=== PATIENT | male | born 1945 | race Caucasian/White ===

== ENCOUNTER → 2019-01-02 | Outpatient (CLI) | payer OTHER | LOC: HYPER 07:15 | DX: T81.89XA Other complications of procedures, not elsewhere classified, initial encounter (principal); L59.8 Other specified disorders of the skin and subcutaneous tissue related to radiation; K63.2 Fistula of intestine; K56.7 Ileus, unspecified; E78.5 Hyperlipidemia, unspecified; E03.9 Hypothyroidism, unspecified; I47.1 Supraventricular tachycardia; M06.9 Rheumatoid arthritis, unspecified; Z85.038 Personal history of other malignant neoplasm of large intestine; Z87.891 Personal history of nicotine dependence; Y84.2 Radiological procedure and radiotherapy as the cause of abnormal reaction of the patient, or of later complication, without mention of misadventure at the time of the procedure; Y92.89 Other specified places as the place of occurrence of the external cause; Y83.8 Other surgical procedures as the cause of abnormal reaction of the patient, or of later complication, without mention of misadventure at the time of the procedure ==

== ENCOUNTER → 2019-01-05 | Outpatient (CLI) | payer OTHER | LOC: RAD 14:15 → HYPER 01-09 10:30 | DX: Z01.818 Encounter for other preprocedural examination (principal); I70.0 Atherosclerosis of aorta; M85.88 Other specified disorders of bone density and structure, other site ==

== ENCOUNTER → 2019-01-09 | Outpatient (CLI) | payer OTHER ==
[~2019-01-09] MED LIST: ATORVASTATIN CA40 MG PO; CYMBALTA20 MG PO; FOLIC ACID1 MG PO; NEURONTIN 400400 M1 PO; SYNTHROID50 MCG PO
== END ==
LOC: HYPER 06:40
DX: T81.83XA Persistent postprocedural fistula, initial encounter (principal); L59.8 Other specified disorders of the skin and subcutaneous tissue related to radiation; E03.9 Hypothyroidism, unspecified; E78.5 Hyperlipidemia, unspecified; I47.1 Supraventricular tachycardia; K63.2 Fistula of intestine; K56.7 Ileus, unspecified; M87.38 Other secondary osteonecrosis, other site; M06.9 Rheumatoid arthritis, unspecified; Z87.891 Personal history of nicotine dependence; Z85.038 Personal history of other malignant neoplasm of large intestine; Y84.2 Radiological procedure and radiotherapy as the cause of abnormal reaction of the patient, or of later complication, without mention of misadventure at the time of the procedure; Y92.89 Other specified places as the place of occurrence of the external cause; Y83.8 Other surgical procedures as the cause of abnormal reaction of the patient, or of later complication, without mention of misadventure at the time of the procedure

== ENCOUNTER → 2019-01-10 | Outpatient (CLI) | payer OTHER ==
[~2019-01-10] MED LIST changes: +CLOTRIMAZOLE 1%15 G1 TOP; +COLACE100 MG PO; +DURAGESIC1 EACH TRANSDERM; +FLOMAX0.4 MG PO; +HYDROCODON-ACE1 EAC7 PO; +LIDOPATCH1 EACH TRANSDERM; +MEDROLDOSEPACK PO; +NORCO 10-325 T1 EACH PO; +NORCO 5-325 TA1 EACH PO; +NORFLEX100 MG PO; +OMEPRAZOLE 20 M20 M1 PO; +PREDNISONE 20 M20 MG PO; +SUDAFED 12 HR120 MG PO; +TYLENOL EXTRA500 MG PO
== END ==
LOC: HYPER 06:35
DX: L59.8 Other specified disorders of the skin and subcutaneous tissue related to radiation (principal); E03.9 Hypothyroidism, unspecified; E78.5 Hyperlipidemia, unspecified; I47.1 Supraventricular tachycardia; K63.2 Fistula of intestine; K56.7 Ileus, unspecified; M87.38 Other secondary osteonecrosis, other site; M06.9 Rheumatoid arthritis, unspecified; Z87.891 Personal history of nicotine dependence; Z85.038 Personal history of other malignant neoplasm of large intestine; Y84.2 Radiological procedure and radiotherapy as the cause of abnormal reaction of the patient, or of later complication, without mention of misadventure at the time of the procedure

== ENCOUNTER → 2019-01-11 | Outpatient (CLI) | payer OTHER | LOC: HYPER 01-10 15:14 | DX: L59.8 Other specified disorders of the skin and subcutaneous tissue related to radiation (principal); E03.9 Hypothyroidism, unspecified; E78.5 Hyperlipidemia, unspecified; I47.1 Supraventricular tachycardia; K56.7 Ileus, unspecified; K63.2 Fistula of intestine; M06.9 Rheumatoid arthritis, unspecified; M87.38 Other secondary osteonecrosis, other site; Z87.891 Personal history of nicotine dependence; Z85.038 Personal history of other malignant neoplasm of large intestine; Y84.2 Radiological procedure and radiotherapy as the cause of abnormal reaction of the patient, or of later complication, without mention of misadventure at the time of the procedure ==

== ENCOUNTER 2019-01-12 00:33 | Emergency (ER) | payer OTHER ==
[~2019-01-12] VITALS: Ht 170.2 cm; Wt 75.3 kg
[2019-01-12 01:35] LABS: HEMATOCRIT 37.1 % (42.0-52.0); HEMOGLOBIN 12.4 gm/dL (14.0-18.0); MCH 27.1 pg (26.0-34.0); MCHC 33.3 g/dL (28.0-37.0); MCV 81.2 fL (80.0-100.0); PLATELET COUNT 469 thou/uL (150-400); RBC 4.57 mil/uL (4.50-6.00); RDW 16.1 % (10.5-14.5)
[2019-01-12 01:42] LABS: CREATININE 1.7 mg/dL (0.7-1.3); POTASSIUM 3.7 mmol/L (3.5-5.1)
[2019-01-12] MEDS ORDERED: ATORVASTATIN CA40 MG PO (01:46)
[2019-01-12] MEDS ORDERED: SYNTHROID50 MCG PO (01:46)
[2019-01-12] MEDS ORDERED: NEURONTIN 400400 M1 PO (01:47)
[2019-01-12] MEDS ORDERED: CYMBALTA20 MG PO (01:47)
[2019-01-12] MEDS ORDERED: FOLIC ACID1 MG PO (01:47)
[2019-01-12 02:24] LABS: ABSOLUTE NEUTROPHILS 3.5 thou/uL (1.4-8.2)
[2019-01-12 02:25] LABS: ANISOCYTOSIS 1+; PLATELET ESTIMATE INCREASED; POLYCHROMASIA 1+
[2019-01-12] MEDS ORDERED: NORCO 5-325 TA1 EACH PO (03:23)
[2019-01-12] MEDS ORDERED: PREDNISONE 20 M20 MG PO (03:23)
[2019-01-12] MEDS ORDERED: NORFLEX100 MG PO (03:23)
[2019-01-12 03:47] VITALS: BP 144/80
== END 2019-01-12 03:48 | disposition home or self-care (01) ==
LOC: ER 00:33
PROVIDERS: Emergency Medicine
DX: M54.5 Low back pain (principal)

== ENCOUNTER 2019-01-14 14:40 | Inpatient (IN) | payer OTHER ==
[~2019-01-14] VITALS: Ht 170.2 cm; Wt 79.4 kg
[~2019-01-14 14:40] MED LIST changes: -CLOTRIMAZOLE 1%15 G1 TOP; -COLACE100 MG PO; -DURAGESIC1 EACH TRANSDERM; -FLOMAX0.4 MG PO; -HYDROCODON-ACE1 EAC7 PO; -LIDOPATCH1 EACH TRANSDERM; -MEDROLDOSEPACK PO; -NORCO 10-325 T1 EACH PO; -OMEPRAZOLE 20 M20 M1 PO; -SUDAFED 12 HR120 MG PO; -TYLENOL EXTRA500 MG PO
[2019-01-14] MEDS ORDERED: FLOMAX0.4 MG PO (14:46)
[2019-01-14] MEDS ORDERED: SUDAFED 12 HR120 MG PO (14:46)
[2019-01-14] MEDS ORDERED: TYLENOL EXTRA500 MG PO (14:48)
[2019-01-14] MEDS ORDERED: CLOTRIMAZOLE 1%15 G1 TOP (14:49)
[2019-01-14 16:40] LABS: ABSOLUTE NEUTROPHILS 4.9 thou/uL (1.4-8.2); BASOPHILS 0.3 % (0.0-2.0); HEMATOCRIT 40.8 % (42.0-52.0); HEMOGLOBIN 13.5 gm/dL (14.0-18.0); LYMPHOCYTES 14.4 % (24.0-44.0); MCH 27.2 pg (26.0-34.0); MCV 82.4 fL (80.0-100.0); MONOCYTES 4.4 % (1.0-8.0); PLATELET COUNT 478 thou/uL (150-400); POLYS 80.9 % (36.0-66.0); RBC 4.95 mil/uL (4.50-6.00); RDW 16.2 % (10.5-14.5)
[2019-01-14 16:55] LABS: APTT 31.6 Seconds (24.5-32.8); PROTIME 10.5 Seconds (9.3-11.4)
[2019-01-14 17:00] LABS: ALBUMIN 3.4 g/dL (3.4-5.0); ANION GAP 7 mmol/L (7-16); BUN 20 mg/dL (7-18); CALCIUM 10.3 mg/dL (8.5-10.1); CHLORIDE 102 mmol/L (98-107); CO2 31 mmol/L (21-32); CREATININE 1.3 mg/dL (0.7-1.3); GLUCOSE 119 mg/dL (74-106); MAGNESIUM 2.1 mg/dL (1.8-2.4); SGOT 19 U/L (15-37); SGPT 23 U/L (30-65); SODIUM 140 mmol/L (136-145); TOTAL BILIRUBIN 0.4 mg/dL (<0.1-1.0); TOTAL PROTEIN 7.4 g/dL (6.4-8.2); TROPONIN-I <0.06 ng/mL (<0.06)
[2019-01-14 18:08] VITALS: BP 100/77
[2019-01-14 20:17] VITALS: BP 115/77
[2019-01-14 23:16] LABS: URINE BILIRUBIN NEGATIVE (Negative); URINE BLOOD 2+ (Negative); URINE CLARITY CLEAR; URINE COLOR YELLOW; URINE GLUCOSE-RANDOM* NEGATIVE (Negative); URINE KETONES NEGATIVE (Negative); URINE LEUKOCYTES-REFLEX NEGATIVE (Negative); URINE NITRITE-REFLEX NEGATIVE (Negative); URINE PROTEIN (DIPSTICK) NEGATIVE (Negative); URINE SPECIFIC GRAVITY <= 1.005 (1.005-1.035); URINE UROBILINOGEN 0.2 E.U./dl (0.2-1.0)
[2019-01-15 00:22] LABS: BACTERIA-REFLEX None Seen /HPF (None Seen); CASTS None Seen /LPF (None Seen); CRYSTALS None Seen /LPF (None Seen); MUCUS None Seen strn/LPF (None Seen); SQUAMOUS None Seen /LPF (0-3); URINE RBC 3-10 Few /HPF (0-2); URINE WBC-REFLEX None Seen /HPF (0-5)
[2019-01-15 03:57] VITALS: BP 111/74
[2019-01-15 08:13] VITALS: BP 109/81
[2019-01-15 16:27] VITALS: BP 95/70
[2019-01-15 20:12] VITALS: BP 97/70
[2019-01-16 06:45] LABS: HEMOGLOBIN 13.7 gm/dL (14.0-18.0); MCH 27.4 pg (26.0-34.0); MCHC 33.3 g/dL (28.0-37.0); MCV 82.1 fL (80.0-100.0); RBC 4.99 mil/uL (4.50-6.00); RDW 16.8 % (10.5-14.5); WBC 7.9 thou/uL (4.0-11.0)
[2019-01-16 06:59] LABS: CALCIUM 10.2 mg/dL (8.5-10.1); CREATININE 1.5 mg/dL (0.7-1.3); MAGNESIUM 2.3 mg/dL (1.8-2.4); POTASSIUM 3.8 mmol/L (3.5-5.1)
[2019-01-16 09:10] VITALS: BP 90/64
[2019-01-16 10:05] LABS: TSH 4.156 uIU/mL (0.358-3.740)
[2019-01-16 20:09] VITALS: BP 113/77
[2019-01-17 06:47] LABS: HEMATOCRIT 40.1 % (42.0-52.0); HEMOGLOBIN 13.2 gm/dL (14.0-18.0); MCH 26.7 pg (26.0-34.0); MCHC 32.8 g/dL (28.0-37.0); MCV 81.4 fL (80.0-100.0); RBC 4.93 mil/uL (4.50-6.00); RDW 16.4 % (10.5-14.5); WBC 7.2 thou/uL (4.0-11.0)
[2019-01-17 07:07] LABS: CALCIUM 9.8 mg/dL (8.5-10.1); CREATININE 1.2 mg/dL (0.7-1.3)
[2019-01-17 08:00] VITALS: BP 14/90
--- NOTE | 2019-01-17 09:56 | HC ---
[facility] [place] [address] CONSULTATION Name: LEIF SAAB Room #: 221-P ADM IN M.R.#: [id number] Admission: 01/14/19 ������������������ Attend Phys: Kendrick Gupta MD Discharge: ������������������ Date of : 43 Report #: [id number] THIS REPORT FOR: //name// CC: Kendrick Leiva DATE OF SERVICE: 01/16/2019 ATTENDING PHYSICIAN: Dr. Kendrick Gupta. REASON FOR CONSULTATION: Severe back pain, question recurrent diskitis versus post-diskitis pain. HISTORY OF PRESENT ILLNESS: A 73-year-old white man was treated for L1-L2 diskitis in [place] with 8 weeks of parenteral antibiotics. The patient was previously seen by [facility]2019 and at that point in time, I was advised he did have catheter sepsis with coagulase-negative Staphylococcus. His back pain was of sudden onset and consequently the connection was made between the bacteremia with coagulase-negative Staphylococcus and diskitis and treated with parenteral antibiotics, intravenous vancomycin for 8 weeks with improvement. His sedimentation rate during that particular hospitalization was not significantly elevated. The patient's son-in-law came [facility]. I requested blood cultures as well as CT of the spine be made available for my review, I had none of those at that point in time. The patient was seen at great length and I visited with the patient, his daughter, his son-in-law, Dr. Gupta and Dr. Scar Leiva as well as I reviewed the MRI of the spine that obviously reveal abnormalities of L1 and L2 vertebral bodies with question abscess L1 and fluid in the disk space. The only thing not going along with an infectious process was the mild to no elevation of ESR and CRP that are thoroughly and completely documented on current laboratory test results and the addendum I entered on my note yesterday. After giving a great deal of thinking about this patient's problem, I elected to proceed with intervention radiology's percutaneous drainage of the L1 vertebral body lesion and L1-L2 disk space in view of abnormalities. Discussed this recommendation with the patient and with Dr. Scar Leiva. Dr. Scar Leiva tells me he did receive the blood culture result from the referring hospital dated 10/29/2018 and resulted on 11/01/2018. It did reveal staphylococcus epidermidis sensitive to vancomycin and only intermediately sensitive to tetracycline and susceptible to rifampin and also erythromycin. We are not given any other reports regarding that. PAST MEDICAL HISTORY: History of intra-abdominal surgical intervention for colon carcinoma, segmental colon resection in 1987 with positive lymph nodes. Several episode of partial small-bowel obstruction treated with no surgical intervention. During this last hospitalization at the [facility], the [address] [address] CONSULTATION Name: RAKANLokiLEIF Room #: 221-P ADM IN M.R.#: [id number] Admission: 01/14/19 ������������������ Attend Phys: Kendrick Gupta MD Discharge: ������������������ Date of : 43 Report #: [id number] patient had exploratory laparotomy, lysis of adhesions and development of enterocutaneous fistula requiring TPN that resulted in coagulase-negative positive blood culture. As far as I received today, there is only a single positive blood culture. The important fact is that the patient did get better with parenteral vancomycin. DRUG ALLERGIES: None listed. MEDICATIONS: The patient has received treatment with vancomycin 1 g IV every 12 hours and I discontinued this antibiotic yesterday. He is also on treatment with folic acid 1 mg daily, atorvastatin 40 mg daily, tamsulosin 0.4 mg daily, levothyroxine 50 mcg daily, gabapentin 400 mg t.i.d., Senna docusate 2 tablets b.i.d., duloxetine 20 mg b.i.d., enoxaparin 40 mg at bedtime subcutaneously, Benadryl 25 mg every 8 hours p.r.n., ondansetron p.r.n., lorazepam p.r.n., I discontinued baclofen topical b.i.d. in view of chronic kidney disease. REVIEW OF SYSTEMS: Severe back pain localized lumbar area with no radicular radiation. After a lengthy discussion with the patient and Dr. Scar Leiva, my recommendation is to proceed with aspiration of the L1 vertebral body and L1-L2 disk space today to make 100% certain we are not dealing with an infectious process and all we are dealing with is post-diskitis pain. PHYSICAL EXAMINATION: GENERAL: Well-developed man, not toxic looking, no distress, no pain while at bed rest. VITAL SIGNS: Temperature 98.6, pulse 94, respirations 20, BP 160/90 on 01/12/2019. On 01/14/2019 was 98.1 today, which is 01/16/2019 temperature 97.4. HEENMT: Normal. NECK: Supple, no thyromegaly. LUNGS: Clear to auscultation. HEART: S1, S2. No gallop or murmur. ABDOMEN: Surgical scar abdomen with no longer active area of healing by secondary intention where the enterocutaneous fistula was located. GENITAL AND RECTAL: Deferred. EXTREMITIES: No clubbing, cyanosis. NEUROLOGIC: Grossly within normal limits. LABORATORY DATA: On 01/14/2019: Sodium 140, potassium 4, BUN 20, creatinine 1.3. On 01/16/2019: Sodium 140, potassium 3.8, BUN 29, creatinine 1.5, hypercalcemia of 10.3 and 10.2 on above-mentioned dates. Alkaline phosphatase elevated 177. CRP on 01/14/2019, 6.3 and today is 13.6. WBCs 7900, hemoglobin 13.7 g/dL and platelets 439,000. ESR on 01/14/2019 was 22 and today is 15. Mild elevation of TSH. The urinalysis revealed microscopic hematuria. [facility] [address] [place] [address] CONSULTATION Name: LEIF SAAB Room #: 221-P ADM IN .R.#: [id number] Admission: 01/14/19 ������������������ Attend Phys: Kendrick Gupta MD Discharge: ������������������ Date of : 43 Report #: [id number] MICROBIOLOGY DATA: Blood cultures x 2 were obtained, they remain negative so far. RADIOLOGY EVALUATION: MRI of the lumbar spine revealed edema of the vertebral body L1 and L2 and fluid in the disk space. On the body of L1, there may be area of prior infection that may represent an abscess. Sedimentation rate obtained on an outpatient basis during my evaluation [facility] revealed ESR on 01/09/2019 of 4 mm per hour and C-reactive protein on 01/09/2019 of 10.9 mg/L. ASSESSMENT: 1. Severe back pain, question secondary to infectious discitis, post-infectious discitis. 2. Abnormal MRI of the lumbar spine with above described symptoms. 3. Chronic kidney disease. 4. History of colon cancer. 5. Microscopic hematuria. 6. Persistent worsening back pain. SUGGESTIONS: Recommend proceed with aspiration of the vertebral body and L1-L2 disk space by interventional radiologist, observe off vancomycin, discontinue nonsteroidal anti-inflammatory medications in view of renal dysfunction and hopefully will reach a diagnosis of either ongoing acute -- chronic diskitis versus post-diskitis pain. Dr. Gupta, thank you for requesting my suggestions. ��������������������������������������������� <ELECTRONICALLY SIGNED> ���������������������������������������� By: Og Davies MD ��������������������������������������������� 01/17/19 0956 [id number] Og Davies MD /nt
[2019-01-17 19:16] VITALS: BP 143/83
[2019-01-18 08:00] VITALS: BP 142/82
[2019-01-18 18:34] VITALS: BP 121/75
[2019-01-19 08:48] VITALS: BP 133/84
[2019-01-19 13:29] VITALS: BP 133/84
== END 2019-01-19 14:10 | disposition home or self-care (01) | DRG 853 ==
LOC: 4W 14:40 → SICU 14:40 → 4W 16:36 → SICU 01-15 21:41 → ENTRNSPT 01-19 13:51 → EDTRNSPTSTS 01-19 13:53 → SICU 01-19 14:10
PROVIDERS: Hospitalist; Internal Medicine Geriatric Medicine; ADMIT Internal Medicine
PROC: 0QB03ZX Excision of Lumbar Vertebra, Percutaneous Approach, Diagnostic (ICD-10-PCS; principal; 2019-01-17)
PROC: 0S9 Lower Joints, Drainage (ICD-10-PCS; principal; 2019-01-17)
PROC: B01B1ZZ Fluoroscopy of Spinal Cord using Low Osmolar Contrast (ICD-10-PCS; principal; 2019-01-17)
DX: A41.9 Sepsis, unspecified organism (principal); E43 Unspecified severe protein-calorie malnutrition; K63.2 Fistula of intestine; M46.46 Discitis, unspecified, lumbar region; N18.9 Chronic kidney disease, unspecified; R31.29 Other microscopic hematuria; M06.9 Rheumatoid arthritis, unspecified; K43.9 Ventral hernia without obstruction or gangrene; E78.5 Hyperlipidemia, unspecified; G89.4 Chronic pain syndrome; N40.0 Benign prostatic hyperplasia without lower urinary tract symptoms; E03.9 Hypothyroidism, unspecified; F41.9 Anxiety disorder, unspecified; R09.81 Nasal congestion; E53.8 Deficiency of other specified B group vitamins; Z85.038 Personal history of other malignant neoplasm of large intestine; Z90.49 Acquired absence of other specified parts of digestive tract; Z79.899 Other long term (current) drug therapy
CPT/HCPCS: 10045; 15002

== ENCOUNTER 2019-01-22 22:13 | Inpatient (IN) | payer OTHER ==
[~2019-01-22] VITALS: Ht 170.2 cm; Wt 72.1 kg
[~2019-01-22 22:13] MED LIST changes: -COLACE100 MG PO; -DURAGESIC1 EACH TRANSDERM; -HYDROCODON-ACE1 EAC7 PO; -LIDOPATCH1 EACH TRANSDERM; -MEDROLDOSEPACK PO; -NORCO 10-325 T1 EACH PO; -OMEPRAZOLE 20 M20 M1 PO
[2019-01-22 22:16] VITALS: BP 144/88
[2019-01-22] MEDS ORDERED: COLACE100 MG PO (22:30)
--- NOTE | 2019-01-22 22:31 | NUR ---
USUALLY DOES HYPERBARIC DAILY, MISSED 1 WEEK WHILE IN HOSPITAL
[2019-01-22 22:49] LABS: HEMATOCRIT 40.4 % (42.0-52.0); HEMOGLOBIN 13.4 gm/dL (14.0-18.0); MCHC 33.2 g/dL (28.0-37.0); MCV 81.1 fL (80.0-100.0); PLATELET COUNT 435 thou/uL (150-400); RBC 4.98 mil/uL (4.50-6.00); RDW 16.8 % (10.5-14.5); WBC 9.3 thou/uL (4.0-11.0)
[2019-01-22 22:55] LABS: CREATININE 1.1 mg/dL (0.7-1.3); POTASSIUM 3.7 mmol/L (3.5-5.1)
[2019-01-22 23:49] LABS: ANISOCYTOSIS 1+; PLATELET ESTIMATE INCREASED; POLYCHROMASIA 1+
[2019-01-23] VITALS (9 sets, daily range): BP systolic 121–178; BP diastolic 79–100
[2019-01-23] MEDS ORDERED: OMEPRAZOLE 20 M20 M1 PO (02:26)
[2019-01-23] MEDS ORDERED: NORFLEX100 MG PO ×2 (02:27→16:21)
--- NOTE | 2019-01-23 03:55 | NUR ---
PT ADMITTED INTO ROOM 456 AT AROUND 0300HRS.ADMISSION ASSESSMENT COMPLETED. PT IS ALERT AND ORIENTED BUT VERY ANXIOUS.PT KEPT ASKING FOR PAIN MEDS DURING THE ADMISSION. HE MENTIONS MORPHINE. HIS PAIN IS RATED AT ABOVE 10.PT WAS ABLE TO STAND BY THE SIDE OF THE BED AND USE THE URINAL. HE HAS SOME URINARY HESITANCY. AFEBRILE. DENIES GI DISCOMFORT. REPORTS BM TWO DAYS AGO. PT SETTLED DOWN AT THIS TIME. CALL LIGHT WITHIN REACH.FALL PREC IN PLACE.
[2019-01-23 06:08] LABS: CALCIUM 10.1 mg/dL (8.5-10.1); CREATININE 1.2 mg/dL (0.7-1.3); POTASSIUM 3.6 mmol/L (3.5-5.1)
--- NOTE | 2019-01-23 09:47 | NUR ---
CALLED DR HOWELL FOR PO ITCHING MED AND CREAM AND ANXIETY MED PRN
--- NOTE | 2019-01-23 14:07 | NUR ---
PT ADMITTED RELATED TO INTRACTABLE BACK PAIN. CM MET WITH PT AT BEDSIDE THIS DAY. PT IS A&O X4. CM ROLE INTRODUCED. PT INDICATED THAT PT IS STAYING IN A HOUSE WITH HIS DTR AND SON IN [place] WITH 1 STEP TO ENTER AND 16 STEPS INSIDE. PT INDICATED SHE PLANS TO RETURN THERE UPON DISHCAGE. PT DISCHARGE HOME FROM HOSPITAL WITH NO NEEDS TUESDAY AND WAS SUPPOSED TO FOLLOW UP AT [facility] OR [facility] FOR OP PAIN MANAGEMENT. CM TO FOLLOW INDICATED WITH DC PLANNING.
--- NOTE | 2019-01-23 15:48 | NUR ---
CALLED [facility] GAVE REPORT ON PATIENT HE WILL BE TRANSFERRING TO ROOM 225
[2019-01-23] MEDS ORDERED: NORCO 10-325 T1 EACH PO (16:21)
[2019-01-23] MEDS ORDERED: MEDROLDOSEPACK PO (16:21)
[2019-01-23] MEDS ORDERED: LIDOPATCH1 EACH TRANSDERM (16:21)
[2019-01-23] MEDS ORDERED: HYDROCODON-ACE1 EAC7 PO (16:21)
[2019-01-23] MEDS ORDERED: DURAGESIC1 EACH TRANSDERM (16:21)
--- NOTE | 2019-01-23 17:15 | NUR ---
CARE TEAM INDICATED THAT PT IS MEDICALLY STABLE TO DISHCARGE HOME THIS DAY. PHYSICIAN IS RECOMMENDING PT, OT, AND NURSING HH SERVICES. CM SPOKE WITH [facility] AND THEY ARE ABLET TO ACCEPT PT FOR SERVICES UPON DC TODAY. PT IS TO HAVE OP APPOINTMENT MADE [facility] PAIN MANAGEMENT. NO OTHER CM INTERVENTION INDICATED AT THIS TIME. CASE CLOSED.
--- NOTE | 2019-01-23 18:29 | NUR ---
ARRIVED TO ROOM 225 IN [facility] AT 1630 VIA WC. STOOD UP BY HIMSELF AND TRANSFERRED TO THE BED. RATING PAIN #8 TO LOWER BACK. TOOK A PAIN PILL PRIOR TO COMING DOWN. MAIN COMPLAINT ITCHING. GAVE BENADRYL AND NOW SLEEPING. REFUSED SUPPER. FALL PRECAUTIONS IN PLACE. PLAN IS TO DISCHARGE HOME WHEN DTR ARRIVES THIS EVENING. PATIENT TO FOLLOWUP WITH PAIN CLINIC AN OUTPATIENT TOMORROW FOR AN EPIDURAL INJECTION. WILL DISCHARGE HOME THIS EVENING.
--- NOTE | 2019-01-24 07:22 | NUR ---
PATIENT DISCHARGED PRIOR TO OT EVALUATION BEING INITIATED.
== END 2019-01-23 19:22 | disposition home health service (06) | DRG 552 ==
LOC: ER 22:13 → 4W 01-23 01:03 → EROBS 01-23 01:03 → 4W 01-23 02:48 → SICU 01-23 16:33 → ENTRNSPT 01-23 19:16 → SICU 01-23 19:22
PROVIDERS: Nurse Practitioner Family; Student in an Organized Health Care Education/Training Program; ADMIT Internal Medicine
DX: M54.5 Low back pain (principal); M06.9 Rheumatoid arthritis, unspecified; E78.5 Hyperlipidemia, unspecified; G89.4 Chronic pain syndrome; F41.9 Anxiety disorder, unspecified; E03.9 Hypothyroidism, unspecified; N40.0 Benign prostatic hyperplasia without lower urinary tract symptoms; Z85.038 Personal history of other malignant neoplasm of large intestine
CPT/HCPCS: 15002

== ENCOUNTER → 2019-01-22 | Outpatient (CLI) | payer OTHER ==
[~2019-01-22] MED LIST changes: +CLOTRIMAZOLE 1%15 G1 TOP; +COLACE100 MG PO; +DURAGESIC1 EACH TRANSDERM; +FLOMAX0.4 MG PO; +HYDROCODON-ACE1 EAC7 PO; +LIDOPATCH1 EACH TRANSDERM; +MEDROLDOSEPACK PO; +NORCO 10-325 T1 EACH PO; +OMEPRAZOLE 20 M20 M1 PO; +SUDAFED 12 HR120 MG PO; +TYLENOL EXTRA500 MG PO
== END ==
LOC: HYPER
DX: L59.8 Other specified disorders of the skin and subcutaneous tissue related to radiation (principal); K56.7 Ileus, unspecified; K63.2 Fistula of intestine; E03.9 Hypothyroidism, unspecified; E78.5 Hyperlipidemia, unspecified; I47.1 Supraventricular tachycardia; M06.9 Rheumatoid arthritis, unspecified; M19.90 Unspecified osteoarthritis, unspecified site; M87.38 Other secondary osteonecrosis, other site; Z87.891 Personal history of nicotine dependence; Z85.038 Personal history of other malignant neoplasm of large intestine; Y84.2 Radiological procedure and radiotherapy as the cause of abnormal reaction of the patient, or of later complication, without mention of misadventure at the time of the procedure

== ENCOUNTER → 2019-01-25 | Outpatient (CLI) | payer OTHER ==
[~2019-01-25] MED LIST changes: +BENADRYL25 MG PO; +COLACE100 MG PO; +DURAGESIC1 EAC4 TRANSDERM; +DURAGESIC1 EACH TRANSDERM; +HYDROCODON-ACE1 EAC7 PO; +LIDOPATCH1 EACH TRANSDERM; +MEDROLDOSEPACK PO; +MIRALAX17 G1 PO; +NORCO 10-325 T1 EACH PO; +OMEPRAZOLE 20 M20 M1 PO; +PSEUDOEPHEDRIN120 M1 PO
== END ==
LOC: HYPER 01-23 07:42
DX: L59.8 Other specified disorders of the skin and subcutaneous tissue related to radiation (principal); K63.2 Fistula of intestine; K56.7 Ileus, unspecified; M06.9 Rheumatoid arthritis, unspecified; E03.9 Hypothyroidism, unspecified; I47.1 Supraventricular tachycardia; E78.5 Hyperlipidemia, unspecified; J69.0 Pneumonitis due to inhalation of food and vomit; M19.90 Unspecified osteoarthritis, unspecified site; Z87.891 Personal history of nicotine dependence; Z85.038 Personal history of other malignant neoplasm of large intestine; Y84.2 Radiological procedure and radiotherapy as the cause of abnormal reaction of the patient, or of later complication, without mention of misadventure at the time of the procedure

== ENCOUNTER → 2019-01-26 | Outpatient (CLI) | payer OTHER | LOC: HYPER | DX: L59.8 Other specified disorders of the skin and subcutaneous tissue related to radiation (principal); K63.2 Fistula of intestine; K56.7 Ileus, unspecified; E03.9 Hypothyroidism, unspecified; I47.1 Supraventricular tachycardia; E78.5 Hyperlipidemia, unspecified; M19.90 Unspecified osteoarthritis, unspecified site; Z87.891 Personal history of nicotine dependence; Z85.038 Personal history of other malignant neoplasm of large intestine; Y84.2 Radiological procedure and radiotherapy as the cause of abnormal reaction of the patient, or of later complication, without mention of misadventure at the time of the procedure ==

== ENCOUNTER → 2019-01-29 | Outpatient (CLI) | payer OTHER ==
[~2019-01-29] MED LIST changes: +SUPRAX400 M1 PO; +TETRACYCLINE H250 MG PO
== END ==
LOC: HYPER
DX: L59.8 Other specified disorders of the skin and subcutaneous tissue related to radiation (principal); K63.2 Fistula of intestine; K56.7 Ileus, unspecified; E03.9 Hypothyroidism, unspecified; E78.5 Hyperlipidemia, unspecified; I47.1 Supraventricular tachycardia; M06.9 Rheumatoid arthritis, unspecified; M87.38 Other secondary osteonecrosis, other site; Z85.038 Personal history of other malignant neoplasm of large intestine; Z87.891 Personal history of nicotine dependence; Y84.2 Radiological procedure and radiotherapy as the cause of abnormal reaction of the patient, or of later complication, without mention of misadventure at the time of the procedure

== ENCOUNTER → 2019-01-31 | Outpatient (CLI) | payer OTHER ==
[~2019-01-31] VITALS: Ht 167.6 cm; Wt 72.5 kg
[~2019-01-31] MED LIST changes: -SUPRAX400 M1 PO; -TETRACYCLINE H250 MG PO
[2019-01-31 11:27] VITALS: BP 133/85
--- NOTE | 2019-01-31 11:51 | NUR ---
Pain Clinic Assessment: 1. History of Osteoarthritis: B/L OSTEOARTHRITIS History of Rheumatoid Arthritis: SYSTEMIC 2. Height: 5 ft. 6 in. 167.6 cm. Weight: 159.8 lb. oz. 72.485 kg. Patient's BMI: 25.8 3. Vital Signs: BP: 133/85 Pulse: 99 Resp: 16 Temp: 02 Sat: 100 ECG Mon: 4. Pain Intensity: 7 5. Fall Risk: Dizziness: N Needs help standing or walking: N Fallen in the last 3 months: N Fall risk comments: 6. Patient on Blood Thinner: None 7. History of Hypertension: N 8. Opioid Therapy greater than 6 weeks: Opiate Contract Signed: 9. Risk Assessment Tool Provided: 10. Functional Assessment Tool: 11. Recreational Drug Use: Never Drug Type: Tobacco Use: Never Smoker Tobacco Type: Amount or Packs/day: How Many Years: Alcohol Use: No Frequency: Quant:
--- NOTE | 2019-02-07 09:13 | HPC ---
[facility] [place] [address] PAIN MANAGEMENT CONSULTATION Name: LEIF SAAB Room #: REG MELONIE Alonso.#: [id number] Admission: 01/31/19 ������������������ Attend Phys: Cornelio Robbins DO Discharge: ������������������ Date of : 43 Report #: [id number] THIS REPORT FOR: //name// CC: FAM unknown Cornelio Robbins Referring Physician DATE OF SERVICE: 01/31/2019 CHIEF COMPLAINT: Back pain. HISTORY OF PRESENT ILLNESS: As you know, the patient is a very pleasant 73-year-old male who has a longstanding history of osteomyelitis and diskitis involving the lumbar spine. Apparently, his symptoms began from an infected PICC line. He was recently admitted to [facility] for continued back pain. He was seen by multiple physicians to review the findings of his imaging and biopsy. Apparently biopsy came back negative though his imaging shows significant changes within the lumbar spine indicated per the radiologist as suggesting ongoing infection at the L1-L2 level. He apparently has negative blood cultures and was subsequently discharged from the hospital on 01/23/2019, though his pain was uncontrolled. He was referred to our clinic to trial epidural injections though the admitting physicians were advised that this was not a possibility and would not be offered as it would not provide benefit for the findings of his imaging studies. He was made today's appointment to discuss other options for treatment. PAST MEDICAL HISTORY: 1. Chronic colon problems. 2. Degenerative joint disease. 3. Osteoarthritis. 4. Colon cancer. 5. Osteomyelitis. 6. Diskitis. PAST SURGICAL HISTORY: 1. Colon surgery in 1988 and 1987. 2. Small-bowel obstruction with surgical decompression in 05/2018. SOCIAL HISTORY: The patient denies tobacco, alcohol, IV or illicit drug use. He retired in 2017, not receiving workmen's compensation nor is he trying to obtain disability benefits. He is not in litigation in regards to pain. REVIEW OF SYSTEMS: Positive for fatigue and weakness, wearing corrective eyewear, painful bowel movements with constipation, nocturia, kidney stones, thyroid disease, heat and cold intolerance, osteomyelitis and diskitis of the lumbar spine. All other review of systems negative per 12-point review of [facility] [address] [place] [address] PAIN MANAGEMENT CONSULTATION Name: LEIF SAAB Room #: REG [facility]..#: [id number] Admission: 01/31/19 ������������������ Attend Phys: Cornelio Robbins DO Discharge: ������������������ Date of : 43 Report #: [id number] systems other than those listed in the history of present illness. Pain impact score 70/70 indicating complete interference of daily activities secondary to pain. ALLERGIES: No known drug allergies. CURRENT MEDICATIONS: Norflex 100 mg twice a day, Lidoderm patch apply topically up to 12 hours at a time, Medrol Dosepak as necessary, hydrocodone 10/325 1 tab p.o. q. 6 hours p.r.n. for pain, fentanyl 12 mcg q. 72 hours, omeprazole 20 mg per day, docusate sodium 100 mg per day, acetaminophen 500 mg 3 times a day, atorvastatin 40 mg per day, levothyroxine 50 mcg per day, duloxetine 20 mg twice a day, folic acid 1 mg per day and tamsulosin 0.4 mg once a day. IMAGING: MRI lumbar spine obtained on 01/15/2019 shows marked marrow edema involving the L1-L2 vertebral bodies. A small amount of fluid in the disk at L1-L2, findings consistent with recurrent diskitis suggesting ongoing infection. There is a fluid filled central region in the L1 vertebral body possibly an area of necrosis or abscess formation measuring 1.3 cm x 0.7 cm. Minor epidural enhancement adjacent to the vertebral bodies at that level. PQRS: The patient has known osteoarthritic changes of the low lumbar spine, bilateral hips and bilateral knees. He is treated for rheumatoid arthritis. He places pain intensity is 7/10. He is a fall risk, but has not had a fall in the last 3 months. He is not on blood thinners. He is not treated for hypertension. He is not been on opioids greater than 6 weeks. He has a low opioid addiction potential. Pain impact score is 70/70, complete interference of daily activities secondary to pain. PHYSICAL EXAMINATION: VITAL SIGNS: Blood pressure 133/85, pulse 99, respiratory rate 16 and unlabored. The patient is 100% on room air. Height 5 feet 6 inches tall, weight 159.8 pounds, BMI calculated 25.8. GENERAL: Well-developed, well-nourished, well-hydrated 73-year-old male appearing stated age. He is in acute distress, placing current pain score 7/10. HEENT: Normocephalic and atraumatic. Pupils are equal, round and reactive to light. Extraocular muscles are intact. Sclerae are nonicteric without injection. NEUROLOGIC: Cranial nerves 2-12 grossly are intact. Speech is fluent. The patient deemed a good historian. LUNGS: Clear, no wheezing, rhonchi or rales. CARDIOVASCULAR: Regular. No appreciable gallop or rub. ABDOMEN: Soft, nontender, nondistended, normoactive bowel sounds. EXTREMITIES: Show no clubbing, no cyanosis and no edema. MUSCULOSKELETAL: Lower extremity strength is symmetrical 5/5. Pain is elicited with any hip flexion, knee extension whether be it left or right side. Seated [address] [address] PAIN MANAGEMENT CONSULTATION Name: LEIF SAAB Room #: REG MELONIE [facility].#: [id number] Admission: 01/31/19 ������������������ Attend Phys: Cornelio Robbins DO Discharge: ������������������ Date of : 43 Report #: [id number] straight leg raising is negative. Supine straight leg raising is negative. Nancy's test negative. Modified Gaenslen's positive for axial low back pain. Ankle clonus is negative. Babinski is negative. ASSESSMENT: 1. Acute on chronic osteomyelitis of L1 and L2. 2. Diskitis of L1-L2 disk space. 3. Intractable back pain. PLAN: 1. The patient has been referred to our clinic by the admitting team at [facility] where he was seen for his osteomyelitis and diskitis. He was provided today's appointment to be seen in consultation to discuss options for treatment. As indicated in the history of present illness and to the referring physicians, epidural injections are not appropriate to be provided for this issue. It will not help with diskitis or osteomyelitis and is an absolute contraindication to epidural injections. We discussed with the patient other options for treatment, which limits us to essentially TLSO bracing and medication management. We discussed this with the patient today, he understands after seeing his MRI the reason why he has the symptoms he is currently experiencing. 2. We will start the patient on a higher dose of fentanyl. Currently, he is utilizing a 12 mcg patch. We will escalate to a 25 mcg patch for the next 6 days. If this is ineffective then we will move to a 37 mcg patch to try to gain better analgesic benefit. The patient does have a 12 mcg patches available to him to be able to titrate if necessary. 3. The patient was provided a prescription of fentanyl 25 mcg patch 1 patch q. 72 hours. I gave the patient #5 patches as an initial dosing. If this is effective, we will continue on the 25 mcg patch and he can return for the next in the series of medication refills. If this does not improve his symptoms, we will escalate to the 37 mcg patch by utilizing the preexisting 12 mcg patches he has with the new prescription of 25 mcg. He will contact our clinic early next week to advise on the effectiveness of the 25 mcg. 3. We discussed with the patient he will need to follow up with Infectious Disease and possibly even a Neurosurgery consultation if his symptoms do not improve. The patient was advised that he does not have osteomyelitis though the findings on his MRI contradict that comment report. Recommend the patient to follow up with ID and possibly Neurosurgery if necessary. 4. We will see the patient back in followup visit for medication management. There is no radicular component of the patient's symptoms, so epidural injection is not indicated nor would it be appropriate with the findings of the MRI. In fact, the findings of the MRI are an absolute contraindication for an epidural injection and will not be a possibility for treatment. This also precludes spinal cord stimulator therapy, though I do not feel this would be of benefit in this patient's case. 5. We wish to thank the referring physician for the opportunity to see this [address] [address] PAIN MANAGEMENT CONSULTATION Name: KAISERLEIF Room #: REG MELONIE Pardo#: [id number] Admission: 01/31/19 ������������������ Attend Phys: Cornelio Robbins DO Discharge: ������������������ Date of : 43 Report #: [id number] patient in consultation. We will keep you apprised of any adjustments in medication therapy deemed necessary and return the patient to your care once we have stabilized his dose. ��������������������������������������������� <ELECTRONICALLY SIGNED> ���������������������������������������� By: Cornelio Robbins DO ��������������������������������������������� 02/07/19 0913 [id number] Cornelio Robbins DO /nt
== END ==
LOC: PAIN 07:11
DX: M46.26 Osteomyelitis of vertebra, lumbar region (principal); M46.46 Discitis, unspecified, lumbar region; G89.4 Chronic pain syndrome; Z79.899 Other long term (current) drug therapy

== ENCOUNTER → 2019-01-31 | Outpatient (CLI) | payer OTHER | LOC: HYPER 06:44 | DX: L59.8 Other specified disorders of the skin and subcutaneous tissue related to radiation (principal); K63.2 Fistula of intestine; K56.7 Ileus, unspecified; E03.9 Hypothyroidism, unspecified; E78.5 Hyperlipidemia, unspecified; I47.1 Supraventricular tachycardia; M06.9 Rheumatoid arthritis, unspecified; M87.38 Other secondary osteonecrosis, other site; Z87.891 Personal history of nicotine dependence; Z85.038 Personal history of other malignant neoplasm of large intestine ==

== ENCOUNTER → 2019-02-01 | Outpatient (CLI) | payer OTHER | LOC: HYPER 06:35 | DX: L59.8 Other specified disorders of the skin and subcutaneous tissue related to radiation (principal); E03.9 Hypothyroidism, unspecified; E78.5 Hyperlipidemia, unspecified; I47.1 Supraventricular tachycardia; K63.2 Fistula of intestine; K56.7 Ileus, unspecified; M06.9 Rheumatoid arthritis, unspecified; M87.38 Other secondary osteonecrosis, other site; Z85.038 Personal history of other malignant neoplasm of large intestine; Z87.891 Personal history of nicotine dependence; Y84.2 Radiological procedure and radiotherapy as the cause of abnormal reaction of the patient, or of later complication, without mention of misadventure at the time of the procedure ==

== ENCOUNTER → 2019-02-02 | Outpatient (CLI) | payer OTHER | LOC: HYPER 07:42 | DX: L59.8 Other specified disorders of the skin and subcutaneous tissue related to radiation (principal); M06.9 Rheumatoid arthritis, unspecified; E03.9 Hypothyroidism, unspecified; I47.1 Supraventricular tachycardia; E78.5 Hyperlipidemia, unspecified; M19.90 Unspecified osteoarthritis, unspecified site; K63.2 Fistula of intestine; K56.7 Ileus, unspecified; Z85.038 Personal history of other malignant neoplasm of large intestine; Z87.01 Personal history of pneumonia (recurrent); Z87.891 Personal history of nicotine dependence; Y84.2 Radiological procedure and radiotherapy as the cause of abnormal reaction of the patient, or of later complication, without mention of misadventure at the time of the procedure ==

== ENCOUNTER → 2019-02-05 | Outpatient (CLI) | payer OTHER | LOC: HYPER 06:46 | DX: L59.8 Other specified disorders of the skin and subcutaneous tissue related to radiation (principal); K63.2 Fistula of intestine; K56.7 Ileus, unspecified; M06.9 Rheumatoid arthritis, unspecified; E03.9 Hypothyroidism, unspecified; I47.1 Supraventricular tachycardia; E78.5 Hyperlipidemia, unspecified; M19.90 Unspecified osteoarthritis, unspecified site; Z87.891 Personal history of nicotine dependence; Z85.038 Personal history of other malignant neoplasm of large intestine; Z79.01 Long term (current) use of anticoagulants; Y84.2 Radiological procedure and radiotherapy as the cause of abnormal reaction of the patient, or of later complication, without mention of misadventure at the time of the procedure ==

== ENCOUNTER → 2019-02-06 | Outpatient (CLI) | payer OTHER | LOC: HYPER 06:55 | DX: L59.8 Other specified disorders of the skin and subcutaneous tissue related to radiation (principal); K63.2 Fistula of intestine; K56.7 Ileus, unspecified; I47.1 Supraventricular tachycardia; M06.9 Rheumatoid arthritis, unspecified; E03.9 Hypothyroidism, unspecified; M19.90 Unspecified osteoarthritis, unspecified site; E78.5 Hyperlipidemia, unspecified; Z79.01 Long term (current) use of anticoagulants; Z87.891 Personal history of nicotine dependence; Z85.038 Personal history of other malignant neoplasm of large intestine; Y84.2 Radiological procedure and radiotherapy as the cause of abnormal reaction of the patient, or of later complication, without mention of misadventure at the time of the procedure ==

== ENCOUNTER → 2019-02-07 | Outpatient (CLI) | payer OTHER | LOC: HYPER 06:56 | DX: L59.8 Other specified disorders of the skin and subcutaneous tissue related to radiation (principal); K63.2 Fistula of intestine; K56.7 Ileus, unspecified; E03.9 Hypothyroidism, unspecified; E78.5 Hyperlipidemia, unspecified; I47.1 Supraventricular tachycardia; M06.9 Rheumatoid arthritis, unspecified; M87.38 Other secondary osteonecrosis, other site; Z87.891 Personal history of nicotine dependence; Z85.038 Personal history of other malignant neoplasm of large intestine; Y84.2 Radiological procedure and radiotherapy as the cause of abnormal reaction of the patient, or of later complication, without mention of misadventure at the time of the procedure ==

== ENCOUNTER → 2019-02-08 | Outpatient (CLI) | payer OTHER | LOC: HYPER 06:45 | DX: L59.8 Other specified disorders of the skin and subcutaneous tissue related to radiation (principal); K63.2 Fistula of intestine; K56.7 Ileus, unspecified; E03.9 Hypothyroidism, unspecified; E78.5 Hyperlipidemia, unspecified; I47.1 Supraventricular tachycardia; M06.9 Rheumatoid arthritis, unspecified; M87.38 Other secondary osteonecrosis, other site; Z87.891 Personal history of nicotine dependence; Z85.038 Personal history of other malignant neoplasm of large intestine; Y84.2 Radiological procedure and radiotherapy as the cause of abnormal reaction of the patient, or of later complication, without mention of misadventure at the time of the procedure ==

== ENCOUNTER → 2019-02-09 | Outpatient (CLI) | payer OTHER | LOC: HYPER 06:44 | DX: L59.8 Other specified disorders of the skin and subcutaneous tissue related to radiation (principal); K63.2 Fistula of intestine; K56.7 Ileus, unspecified; E03.9 Hypothyroidism, unspecified; E78.5 Hyperlipidemia, unspecified; I47.1 Supraventricular tachycardia; M06.9 Rheumatoid arthritis, unspecified; M87.38 Other secondary osteonecrosis, other site; Z85.038 Personal history of other malignant neoplasm of large intestine; Z87.891 Personal history of nicotine dependence; Y84.2 Radiological procedure and radiotherapy as the cause of abnormal reaction of the patient, or of later complication, without mention of misadventure at the time of the procedure ==

== ENCOUNTER → 2019-02-12 | Outpatient (CLI) | payer OTHER | LOC: HYPER 06:45 | DX: L59.8 Other specified disorders of the skin and subcutaneous tissue related to radiation (principal); E03.9 Hypothyroidism, unspecified; E78.5 Hyperlipidemia, unspecified; K63.2 Fistula of intestine; K56.7 Ileus, unspecified; I47.1 Supraventricular tachycardia; M87.38 Other secondary osteonecrosis, other site; M06.9 Rheumatoid arthritis, unspecified; Z87.891 Personal history of nicotine dependence; Z85.038 Personal history of other malignant neoplasm of large intestine; Y84.2 Radiological procedure and radiotherapy as the cause of abnormal reaction of the patient, or of later complication, without mention of misadventure at the time of the procedure ==

== ENCOUNTER → 2019-02-13 | Outpatient (CLI) | payer OTHER ==
[~2019-02-13] VITALS: Ht 167.6 cm; Wt 72.5 kg
[~2019-02-13] MED LIST changes: +TETRACYCLINE H250 MG PO
[2019-02-13 11:02] VITALS: BP 132/98
--- NOTE | 2019-02-13 11:12 | NUR ---
Pain Clinic Assessment: 1. History of Osteoarthritis: B/L OSTEOARTHRITIS History of Rheumatoid Arthritis: SYSTEMIC 2. Height: 5 ft. 6 in. 167.6 cm. Weight: 159.8 lb. oz. 72.485 kg. Patient's BMI: 25.8 3. Vital Signs: BP: 132/98 Pulse: 80 Resp: 20 Temp: 02 Sat: 100 ECG Mon: 4. Pain Intensity: 10 5. Fall Risk: Dizziness: N Needs help standing or walking: Y Fallen in the last 3 months: N Fall risk comments: 6. Patient on Blood Thinner: None 7. History of Hypertension: N 8. Opioid Therapy greater than 6 weeks: Opiate Contract Signed: 9. Risk Assessment Tool Provided: 10. Functional Assessment Tool: 11. Recreational Drug Use: Never Drug Type: Tobacco Use: Never Smoker Tobacco Type: Amount or Packs/day: How Many Years: Alcohol Use: No Frequency: Quant:
== END ==
LOC: PAIN 07:04
DX: M54.5 Low back pain (principal)

== ENCOUNTER → 2019-02-13 | Outpatient (CLI) | payer OTHER ==
[~2019-02-13] MED LIST changes: -TETRACYCLINE H250 MG PO
== END ==
LOC: HYPER 06:54
DX: L59.8 Other specified disorders of the skin and subcutaneous tissue related to radiation (principal); E03.9 Hypothyroidism, unspecified; I47.1 Supraventricular tachycardia; M06.9 Rheumatoid arthritis, unspecified; E78.5 Hyperlipidemia, unspecified; K63.2 Fistula of intestine; K56.7 Ileus, unspecified; M19.90 Unspecified osteoarthritis, unspecified site; Z87.891 Personal history of nicotine dependence; Z85.038 Personal history of other malignant neoplasm of large intestine; Y84.2 Radiological procedure and radiotherapy as the cause of abnormal reaction of the patient, or of later complication, without mention of misadventure at the time of the procedure

== ENCOUNTER → 2019-02-14 | Outpatient (CLI) | payer OTHER | LOC: HYPER 06:33 | DX: L59.8 Other specified disorders of the skin and subcutaneous tissue related to radiation (principal); K63.2 Fistula of intestine; K56.7 Ileus, unspecified; E03.9 Hypothyroidism, unspecified; E78.5 Hyperlipidemia, unspecified; I47.1 Supraventricular tachycardia; M06.9 Rheumatoid arthritis, unspecified; M87.38 Other secondary osteonecrosis, other site; Z87.891 Personal history of nicotine dependence; Z85.038 Personal history of other malignant neoplasm of large intestine; Y84.2 Radiological procedure and radiotherapy as the cause of abnormal reaction of the patient, or of later complication, without mention of misadventure at the time of the procedure ==

== ENCOUNTER → 2019-02-15 | Outpatient (CLI) | payer OTHER ==
[~2019-02-15] MED LIST changes: +TETRACYCLINE H250 MG PO
== END ==
LOC: HYPER 07:02
DX: L59.8 Other specified disorders of the skin and subcutaneous tissue related to radiation (principal); I47.1 Supraventricular tachycardia; M06.9 Rheumatoid arthritis, unspecified; E78.5 Hyperlipidemia, unspecified; K63.2 Fistula of intestine; K56.7 Ileus, unspecified; E03.9 Hypothyroidism, unspecified; M19.90 Unspecified osteoarthritis, unspecified site; Z87.891 Personal history of nicotine dependence; Z85.038 Personal history of other malignant neoplasm of large intestine; Y84.2 Radiological procedure and radiotherapy as the cause of abnormal reaction of the patient, or of later complication, without mention of misadventure at the time of the procedure

== ENCOUNTER → 2019-02-16 | Outpatient (CLI) | payer OTHER | LOC: HYPER 08:38 | DX: L59.8 Other specified disorders of the skin and subcutaneous tissue related to radiation (principal); K63.2 Fistula of intestine; K56.7 Ileus, unspecified; M06.9 Rheumatoid arthritis, unspecified; E03.9 Hypothyroidism, unspecified; I47.1 Supraventricular tachycardia; E78.5 Hyperlipidemia, unspecified; M19.90 Unspecified osteoarthritis, unspecified site; Z87.891 Personal history of nicotine dependence; Z79.01 Long term (current) use of anticoagulants; Z85.038 Personal history of other malignant neoplasm of large intestine; Y84.2 Radiological procedure and radiotherapy as the cause of abnormal reaction of the patient, or of later complication, without mention of misadventure at the time of the procedure ==

== ENCOUNTER → 2019-02-19 | Outpatient (CLI) | payer OTHER | LOC: HYPER 06:58 | DX: L59.8 Other specified disorders of the skin and subcutaneous tissue related to radiation (principal); K63.2 Fistula of intestine; E03.9 Hypothyroidism, unspecified; I47.1 Supraventricular tachycardia; K56.7 Ileus, unspecified; M06.9 Rheumatoid arthritis, unspecified; E78.5 Hyperlipidemia, unspecified; M19.90 Unspecified osteoarthritis, unspecified site; Z87.891 Personal history of nicotine dependence; Z85.038 Personal history of other malignant neoplasm of large intestine; Z79.01 Long term (current) use of anticoagulants; Y84.2 Radiological procedure and radiotherapy as the cause of abnormal reaction of the patient, or of later complication, without mention of misadventure at the time of the procedure ==

== ENCOUNTER 2019-02-20 18:03 | Emergency (ER) | payer OTHER ==
[~2019-02-20] VITALS: Ht 170.2 cm; Wt 72.6 kg
[~2019-02-20 18:03] MED LIST changes: -TETRACYCLINE H250 MG PO
[2019-02-20] MEDS ORDERED: TETRACYCLINE H250 MG PO (19:07)
[2019-02-20 19:37] LABS: HEMATOCRIT 40.7 % (42.0-52.0); HEMOGLOBIN 13.7 gm/dL (14.0-18.0); MCH 27.2 pg (26.0-34.0); MCHC 33.5 g/dL (28.0-37.0); MCV 81.1 fL (80.0-100.0); PLATELET COUNT 349 thou/uL (150-400); RBC 5.02 mil/uL (4.50-6.00); RDW 18.6 % (10.5-14.5); WBC 9.8 thou/uL (4.0-11.0)
[2019-02-20 19:46] LABS: URINE BILIRUBIN NEGATIVE (Negative); URINE BLOOD 3+ (Negative); URINE CLARITY CLEAR; URINE COLOR YELLOW; URINE GLUCOSE-RANDOM* NEGATIVE (Negative); URINE KETONES NEGATIVE (Negative); URINE LEUKOCYTES-REFLEX NEGATIVE (Negative); URINE NITRITE-REFLEX NEGATIVE (Negative); URINE PROTEIN (DIPSTICK) NEGATIVE (Negative)
[2019-02-20 19:49] LABS: CALCIUM 10.4 mg/dL (8.5-10.1); CREATININE 1.2 mg/dL (0.7-1.3); POTASSIUM 3.8 mmol/L (3.5-5.1)
[2019-02-20 19:54] LABS: URINE RBC 3-10 Few /HPF (0-2)
[2019-02-20 19:55] LABS: AMORPHOUS PHOSPHATES Moderate /LPF (None Seen); BACTERIA-REFLEX 1-9 Few /HPF (None Seen); CASTS None Seen /LPF (None Seen); CRYSTALS None Seen /LPF (None Seen); SQUAMOUS None Seen /LPF (0-3); URINE WBC-REFLEX None Seen /HPF (0-5)
[2019-02-20 20:01] LABS: ABSOLUTE NEUTROPHILS 8.1 thou/uL (1.4-8.2); ANISOCYTOSIS 1+
[2019-02-20] MEDS ORDERED: FLOMAX0.4 MG PO (21:39)
[2019-02-20 21:45] VITALS: BP 172/100
== END 2019-02-20 21:45 | disposition home or self-care (01) ==
LOC: ER 18:03
PROVIDERS: Emergency Medicine
DX: N20.1 Calculus of ureter (principal)

== ENCOUNTER 2019-03-08 19:15 | Emergency (ER) | payer OTHER ==
[~2019-03-08] VITALS: Ht 170.2 cm; Wt 69.0 kg
[~2019-03-08 19:15] MED LIST changes: +TETRACYCLINE H250 MG PO
[2019-03-08] MEDS ORDERED: COLACE100 MG PO (19:33)
[2019-03-08] MEDS ORDERED: SUPRAX400 M1 PO (19:34)
[2019-03-08 19:41] LABS: HEMATOCRIT 42.7 % (42.0-52.0); HEMOGLOBIN 14.3 gm/dL (14.0-18.0); MCH 27.3 pg (26.0-34.0); MCHC 33.5 g/dL (28.0-37.0); MCV 81.3 fL (80.0-100.0); RBC 5.25 mil/uL (4.50-6.00); RDW 19.9 % (10.5-14.5); WBC 10.4 thou/uL (4.0-11.0)
[2019-03-08 19:52] LABS: CALCIUM 10.2 mg/dL (8.5-10.1); CREATININE 1.4 mg/dL (0.7-1.3); POTASSIUM 3.9 mmol/L (3.5-5.1)
[2019-03-08 22:56] VITALS: BP 139/99
[2019-03-13] MEDS ORDERED: PREDNISONE 20 M20 MG PO (10:22)
[2019-03-13] MEDS ORDERED: DURAGESIC1 EAC4 TRANSDERM (10:54)
[2019-03-13] MEDS ORDERED: DURAGESIC1 EACH TRANSDERM (10:54)
== END 2019-03-08 22:45 | disposition home or self-care (01) ==
LOC: ER 19:15
PROVIDERS: Student in an Organized Health Care Education/Training Program
DX: G89.29 Other chronic pain (principal); M54.5 Low back pain

== ENCOUNTER → 2019-03-13 | Outpatient (CLI) | payer OTHER ==
[~2019-03-13] VITALS: Ht 167.6 cm; Wt 69.1 kg
[~2019-03-13] MED LIST changes: +SUPRAX400 M1 PO
--- NOTE | ~2019-03-13 | HPC ---
[facility] [place] [address] PAIN MANAGEMENT CONSULTATION Name: LEIF SAAB Room #: REG MELONIE Gavin.#: [id number] Admission: 03/13/19 ������������������ Attend Phys: Cornelio Robbins DO Discharge: ������������������ Date of : 41 Report #: [id number] THIS REPORT FOR: //name// CC: FAM physician/PCP Cornelio Gupta MD DATE OF SERVICE: 03/13/2019 REFERRING PHYSICIAN: Kendrick Gupta MD. CHIEF COMPLAINT: Back pain secondary to osteomyelitis and recent vertebral compression fracture. HISTORY OF PRESENT ILLNESS: As you know, the patient is a very pleasant 73-year-old male who returns today in followup visit with pain level of around 3/10. He recently was started on steroid medication by his son-in-law's physician. This has improved the patient's overall pain, but is questionable in an osteomyelitic patient. The patient has apparently been to the Emergency Department four times prior to the initiation of this medication. On the most recent visit to our facility, they evaluated the patient and indicated he had a nonobstructing renal calculus. Review of the CT actually shows vertebral compression fracture at the L1 level with new lateralization of the bony structures and continued changes consistent with osteomyelitis. He returns today in followup visit for adjustments in medication management to address ongoing pain issues. Currently, the patient is utilizing an abdominal binder for hernia, but has not worn any bracing for his vertebral issues. ALLERGIES: No known drug allergies. CURRENT MEDICATIONS: MiraLax, diphenhydramine, pseudoephedrine, fentanyl, Lidoderm, hydrocodone/acetaminophen, tamsulosin, folic acid, duloxetine, levothyroxine, atorvastatin. SOCIAL HISTORY: The patient denies tobacco, alcohol, IV or illicit drug use. He retired in 2017. He is accompanied by his son-in-law, present in room today. IMAGING: New imaging is available. CT examination of the abdomen and pelvis without contrast obtained on 02/20/2019, which shows vertebral compression fracture at L1 with lateralization of the L1 on L2. There is noted rotoscoliosis of the thoracolumbar area. There is also noted a nonobstructing left UPJ calculus. PQRS: The patient has known osteoarthritic changes of the lumbar spine, bilateral hips, and bilateral knees. He is treated for rheumatoid arthritis. He is placing pain intensity today at 3/10. He is a fall risk and has had [facility] [address] [place] [address] PAIN MANAGEMENT CONSULTATION Name: LEIF SAAB Room #: REG CLI Char#: [id number] Admission: 03/13/19 ������������������ Attend Phys: Cornelio Robbins DO Discharge: ������������������ Date of : 41 Report #: [id number] multiple falls in the last 3 months. He is using a cane for ambulation and balance. He is not on blood thinners. He is not treated for hypertension. He is on chronic opioids in the form of fentanyl and hydrocodone. He is accompanied by his family member in room today. Pain impact score 40/70, moderate interference of daily activities secondary to pain. PHYSICAL EXAMINATION: VITAL SIGNS: Blood pressure 131/86, pulse is 95, respiratory rate 16 and unlabored. The patient is 97% on room air. Height 5 feet 6 inches tall, weight 152.4 pounds, BMI calculated 24.6. GENERAL: Well-developed, well-nourished, well-hydrated 73-year-old male. He appears stated age, pain is rated today 3/10. HEENT: Normocephalic, atraumatic. Pupils are equal, round, reactive to light. The patient remains a fair historian. EXTREMITIES: Show no clubbing, no cyanosis, and no edema. MUSCULOSKELETAL: Lower extremity strength is symmetrical today 5/5. There is palpatory tenderness over the paraspinal musculature of the thoracolumbar area directly overlying the L1 and L2 level. There is spinous process tenderness noted as well. There is deconditioning of lower extremities, though muscle bulk and tone appears symmetrical in left lower extremity and right lower extremity. Seated straight leg raise negative. Supine straight leg raising negative. ASIA test negative. Modified Gaenslen's positive for axial low back pain. ASSESSMENT: 1. Acute on chronic osteomyelitis, L1-L2. 2. Diskitis of L1-L2. 3. Compression fracture at the L1 level with lateralization and rotoscoliosis. 4. Chronic intractable pain. PLAN: 1. The patient returns today in followup visit where we have noted changes from his MRI to his CT examination. Changes are noted most significantly in the L1 vertebral body where there appears to be some compression deformity lateralization and appears to be continued osteomyelitic changes. We have discussed this with the patient today. We recommend the following treatment. 2. The patient will be placed in a soft-sided TLSO bracing system. This will provide bracing for the patient actually, but also will help with abdominal compression to decrease his abdominal hernia, which also causes the patient discomfort. The patient was given a prescription for this device to be fitted today. He will obtain this device and wear while sitting and standing and ambulating. He can have it off during sleep and sitting in his recliner. This was provided to the patient today. 3. The patient was given refills of his fentanyl 25 mcg patch and a 12 mcg patch, 10 of each for a total of 37 mcg. He was given this prescription with no refills. He is denying side effects with the therapy. 4. The patient will continue to use his hydrocodone . He has 90 tablets [facility] [address] [place] [address] PAIN MANAGEMENT CONSULTATION Name: LEIF SAAB Room #: REG Adelia Alonso.#: [id number] Admission: 03/13/19 ������������������ Attend Phys: Cornelio Robbins DO Discharge: ������������������ Date of : 41 Report #: [id number] available to him, does not need a refill on that medication at this time. 5. The patient will be sent to see Neurosurgery. I have taken the liberty of contacting the Neurosurgery office and have made him appointment next week to see the Neurosurgery nurse practitioner. I wish to have Neurosurgery involved in this patient's case in case compression fracture continues to worsen and there is significant neuropathic component to his symptoms. At present, he appears to be doing well. The bracing system should improve his overall pain, though I wish to have the neurosurgery team plugged in, in case of continuing issues. The prescriptions were provided to the patient today. 6. We will see the patient back in followup visit in 1 month for medication management. ��������������������������������������������� ���������������������������������������� By: ��������������������������������������������� [id number] Cornelio Robbins DO /nt
[2019-03-13 10:04] VITALS: BP 131/86
--- NOTE | 2019-03-13 10:23 | NUR ---
Pain Clinic Assessment: 1. History of Osteoarthritis: B/L OSTEOARTHRITIS History of Rheumatoid Arthritis: SYSTEMIC 2. Height: 5 ft. 6 in. 167.6 cm. Weight: 152.4 lb. oz. 69.128 kg. Patient's BMI: 24.6 3. Vital Signs: BP: 131/86 Pulse: 95 Resp: 16 Temp: 02 Sat: 97 ECG Mon: 4. Pain Intensity: 3 5. Fall Risk: Dizziness: Y Needs help standing or walking: Y Fallen in the last 3 months: Y Fall risk comments: 6. Patient on Blood Thinner: None 7. History of Hypertension: N 8. Opioid Therapy greater than 6 weeks: Y Opiate Contract Signed: 9. Risk Assessment Tool Provided: 10. Functional Assessment Tool: 11. Recreational Drug Use: Never Drug Type: Tobacco Use: Never Smoker Tobacco Type: Amount or Packs/day: How Many Years: Alcohol Use: No Frequency: Quant:
== END ==
LOC: PAIN 06:46
DX: M46.26 Osteomyelitis of vertebra, lumbar region (principal); M48.56XD Collapsed vertebra, not elsewhere classified, lumbar region, subsequent encounter for fracture with routine healing; G89.4 Chronic pain syndrome; Z79.52 Long term (current) use of systemic steroids